=== PATIENT | male | born 1965 | race Caucasian/White ===

== ENCOUNTER → 2021-09-21 10:01 | Outpatient (CLI) | payer OTHER, SELFPAY ==
--- NOTE | 2021-09-21 16:15 | PFTCOMP_ITS ---
COMPLETE PULMONARY FUNCTION TEST INTERPRETATION Brief HPI: Patient is a 56 year old male, currently under the care of Dmitriy Ku, who presents to [facility] for complete pulmonary function tests secondary to diagnosis of asthma. Respiratory therapist reports good effort and reproducible results. Interpretation: Forced expiration spirometry shows a mild large airways obstructive ventilatory defect with an FEV1 of 88% predicted. There is a significant bronchodilator response in FVC and FEV1 by strict ATS criteria. Spirograms are of good quality and plateau slowly, indicating slowly emptying areas of the lungs. The respiratory flow volume loop shows decreased expiratory flow rates at all lung volumes consistent with airway obstruction. Lung volumes by body plethysmography show a decreased total lung capacity at 5.29 L, 76% predicted. All other lung volumes are reduced symmetrically. Diffusion capacity by carbon monoxide is normal at 91% predicted. The airway resistance is elevated. No previous pulmonary function tests were available for review. Impression: Partially reversible mild mixed ventilatory defect with preserved diffusion capacity
== END ==
DX: J45.998 Other asthma (principal)
CPT/HCPCS: 94060; 94726; 94729